=== PATIENT | female | born 1990 | race Caucasian/White ===

== ENCOUNTER 2024-07-02 06:41 | Outpatient (REF) | payer OTHER, SELFPAY ==
--- NOTE | ~2024-07-02 | US_ITS ---
EXAMINATION: US PELVIS CLINICAL INFORMATION: Irregular menses every 2 weeks. LMP 06/09/2024. COMPARISON: None available. TECHNIQUE: Ultrasound of the pelvis is performed using both transabdominal and transvaginal transducers along with Doppler. Transvaginal imaging is performed due to inadequate visualization transabdominally. FINDINGS: Uterus: The uterus is anteverted and measures 8.4 x 3.8 x 5.1 cm. Uterine echotexture is heterogeneous. The endometrial stripe measures 1.4 cm in thickness. Adnexa: The right ovary measures 3.5 x 1.9 x 2.0 cm. Right ovarian volume is 6.8 mL. The left ovary measures 2.5 x 2.6 x 2.7 cm. Left ovarian volume is 9.0 mL. No significant free fluid in the pelvis. US/US pelvic and transvaginal IMPRESSION: Thickened endometrium. Advise correlation with patient's menstrual history. Electronically signed by: Valdo Key MD 07/02/2024 04:32 PM EDT
== END 2024-07-02 06:42 | disposition home or self-care (01) ==
LOC: HO.UMASIMG 06:41
PROVIDERS: Visit Provider Nurse Practitioner Women's Health
DX: R35.0 Frequency of micturition (principal); N92.6 Irregular menstruation, unspecified
CPT/HCPCS: 76830; 76856

== ENCOUNTER 2024-08-18 06:31 | Outpatient (REF) | payer OTHER, SELFPAY ==
--- NOTE | ~2024-08-18 | US_ITS ---
EXAMINATION: US PELVIS CLINICAL INFORMATION: Irregular menses, dysuria, last menstrual period 08/13/2024. COMPARISON: 07/02/2024. TECHNIQUE: Ultrasound of the pelvis is performed using both transabdominal and transvaginal transducers along with Doppler. Transvaginal imaging is performed due to inadequate visualization transabdominally. FINDINGS: Anteverted uterus measures 8.7 x 4.3 x 4.6 cm. Heterogeneous echotexture. Endometrial thickness is 0.3 cm. Small amount of free fluid in the cul-de-sac. Right ovary measures 3.6 x 2.2 x 3.2 cm, volume 13.2 mL. Right ovarian 1.9 x 1.8 x 1.6 cm cyst, likely simple. There is no specific indication for additional imaging at this time. Left ovary measures 2.7 x 1.7 x 2.6 cm, volume 5.9 mL. A 1.2 x 1.1 cm left ovarian cyst is likely simple. There is no specific indication for additional imaging at this time. US/US pelvic and transvaginal IMPRESSION: 1. Endometrial thickness is 0.3 cm. 2. Small amount of free fluid in the cul-de-sac. 3. Bilateral ovarian cysts, likely simple. There is no specific indication for additional imaging at this time. This study was presented today August 19, 2024 for interpretation. Stat results provided at this time as requested by referring provider. Electronically signed by: Mel Barron MD 08/19/2024 07:09 AM [facility]
== END 2024-08-18 06:32 | disposition home or self-care (01) ==
LOC: HO.UMASIMG 06:31
PROVIDERS: Visit Provider Family Medicine
DX: N92.6 Irregular menstruation, unspecified (principal); R30.0 Dysuria
CPT/HCPCS: 76830; 76856

== ENCOUNTER → 2024-11-04 08:30 | Outpatient (REF) | payer OTHER, SELFPAY | LOC: HO.CARD 08:30 | PROVIDERS: PCP Emergency Medicine; Visit Provider Emergency Medicine | DX: R00.2 Palpitations (principal); R00.0 Tachycardia, unspecified | CPT/HCPCS: 93242 ==